=== PATIENT | male | born 1960 | race African-American/Black ===

== ENCOUNTER 2024-07-16 01:11 | Emergency (ER) | payer OTHER, MEDICAID ==
[~2024-07-16] VITALS: Ht 180.3 cm; Wt 105.0 kg
[2024-07-16 01:12] VITALS: O2SAT 99
[2024-07-16 02:13] LABS: BASOPHILS % 0.5 % (0.0-2.0); DIFFERENTIAL COMMENT 0; EOSINOPHILS % 3.2 % (0.0-5.0); MEAN CORPUSCULAR HEMOGLOBIN 27.5 pg (28.0-32.0); MEAN CORPUSCULAR HGB CONC 32.4 g/dL (31.0-37.0); MEAN CORPUSCULAR VOLUME 84.8 fL (80.0-94.0); MEAN PLATELET VOLUME 10.4 fl (7.4-10.4); MONOCYTES % 7.3 % (2.0-8.0); PLATELET 114 x1000/uL (130-400); RED CELL DISTRIBUTION WIDTH 14.3 % (11.6-14.6); WHITE BLOOD COUNT 8.7 x1000/uL (4.5-11.0)
[2024-07-16 02:21] LABS: CALCIUM 8.1 mg/dL (8.7-10.4); CARBON DIOXIDE 25 mEq/L (21-32); CHLORIDE 113 mEq/L (98-107); POTASSIUM 3.2 mEq/L (3.5-5.1); SODIUM 143 mEq/L (136-145)
[2024-07-16 02:25] LABS: HEMOGLOBIN. 6.6 g/dL (14.0-18.0)
[2024-07-16 02:26] LABS: CREATININE 0.9 mg/dL (0.6-1.3); HEMATOCRIT. 20.3 % (42.0-52.0); TROPONIN I HIGH SENSITIVITY 7 ng/L (3.0-53)
[2024-07-16 02:27] LABS: GLUCOSE 144 mg/dL (70-105); UREA NITROGEN BLOOD 24 mg/dL (9-23)
[2024-07-16 02:45] LABS: ETHANOL BLOOD < 10 mg/dL (<10)
[2024-07-16 02:49] LABS: PARTIAL THROMBOPLASTIN TIME 21.2 sec (23.4-31.0); PROTHROMBIN TIME 11.4 sec (9.6-11.0)
[2024-07-16] MEDS: POTASSIUM CHLORIDE 20MEQ/PACKET PO NR (03:01)
[2024-07-16 03:05] LABS: CLARITY URINE CLEAR (CLEAR); COLOR URINE YELLOW (YELLOW); GLUCOSE URINE NEGATIVE (NEGATIVE); KETONES URINE NEGATIVE (NEGATIVE); LEUKOCYTE ESTERASE URINE NEGATIVE (NEGATIVE); NITRITE URINE NEGATIVE (NEGATIVE); OCCULT BLOOD URINE NEGATIVE (NEGATIVE); PH URINE 5.5 (4.5-8.0); PROTEIN URINE NEGATIVE (NEGATIVE); SPECIFIC GRAVITY URINE 1.022 (1.005-1.030); UROBILINOGEN URINE 0.2 E.U./dL (0.2-1.0)
[2024-07-16 03:24] LABS: *AMPHETAMINES SCREEN URINE NEGATIVE (NEGATIVE); *BARBITURATES SCREEN URINE NEGATIVE (NEGATIVE); *BENZODIAZEPINES SCREEN URINE NEGATIVE (NEGATIVE); *COCAINE SCREEN URINE NEGATIVE (NEGATIVE); CANNABINOID URINE SCREEN NEGATIVE (NEGATIVE); ECSTASY MDMA SCREEN URINE NEGATIVE (NEGATIVE); METHADONE URINE SCREEN NEGATIVE (NEGATIVE); OPIATES URINE SCREEN NEGATIVE (NEGATIVE); PHENCYCLIDINE URINE SCREEN NEGATIVE (NEGATIVE)
[2024-07-16] MEDS: PANTOPRAZOLE SODIUM 40 MG/VIAL IV NR (03:57)
[2024-07-16 04:08] LABS: ALANINE AMINOTRANSFERASE 16 IU/L (10-49); ALBUMIN 2.6 g/dL (3.2-4.8); ASPARTATE AMINOTRANSFERASE 25 IU/L (<34)
[2024-07-16 04:09] LABS: BILIRUBIN TOTAL 0.2 mg/dL (0.1-1.0); PROTEIN TOTAL 4.6 g/dL (6.0-8.3)
[2024-07-16 04:18] LABS: BILIRUBIN DIRECT < 0.1 mg/dL (<=3.0)
[2024-07-16] MEDS ORDERED: PIPERACILLIN/TAZO 3.375G/50ML 50 ML IV NR (05:55)
[2024-07-16] MEDS ORDERED: PANTOPRAZOLE 80 MG in SODIUM CHLORIDE 0.9% 100 ML IV SCH (06:00)
[2024-07-16 07:53] VITALS: BP 128/71; PULSE 86; RESP 15; TEMP 36.28068; O2SAT 97
== END 2024-07-16 07:54 | disposition short-term general hospital (02) ==
LOC: ER 01:11
DX: K92.2 Gastrointestinal hemorrhage, unspecified (principal); R55 Syncope and collapse; I95.9 Hypotension, unspecified; I10 Essential (primary) hypertension; Z88.1 Allergy status to other antibiotic agents; D64.9 Anemia, unspecified
CPT/HCPCS: 80076; 80305; 80048; 81003; 80320; 82270; 83880; 85025; 85610; 85730; 86850; 86900; 86901; 86920; 84484; 36415; 71045; 70450; 74176; 93005; 96374; 99285; J2470; J7050; P9016; G0480